=== PATIENT | male | born 1950 | race Caucasian/White ===

== ENCOUNTER 2017-03-01 15:34 | Emergency (ER) | payer MEDICARE, OTHER ==
[~2017-03-01] VITALS: Ht 172.7 cm; Wt 80.0 kg
[2017-03-01 15:37] VITALS: BP 227/112; PULSE 74; RESP 12; TEMP 97.6; O2SAT 97
--- NOTE | 2017-03-01 15:42 | PD ---
Physical Exam Date Seen by Provider: March 01, 2017 Time Seen by Provider: 15:40 Narrative 66 YOWM C/O HTN . BP ELEVATED. NO BRITT ,CP/SOB, DIZZINESS, NUMBNESS OR WEAKNESS VS NOTED Data Data Last Documented VS Vital Signs Date Time Temp Pulse Resp B/P Pulse Ox O2 Delivery O2 Flow Rate FiO2 03/01/17 15:37 97.6 74 12 227/112 97 MDM Medical Record Reviewed: Yes Supervised Visit with ROZ: Harley Watt March 01, 2017 15:42
[2017-03-01 16:20] VITALS: BP 225/107; PULSE 67; RESP 15; O2SAT 98
[2017-03-01] MEDS ORDERED: ENALAPRILAT 2.5 MG/2 ML VIAL IV PUSH ONE (16:30)
--- NOTE | 2017-03-01 16:32 | PD ---
HPI Chief Complaint: Hypertension Time Seen by Provider: 16:20 Travel History International Travel<30 days: No Contact w/Intl Traveler<30days: No Traveled to known affect area: No History of Present Illness HPI 66-year-old male with history of bladder and urethral cancer currently not receiving any treatment, under palliative care per his , history of dementia who presents for evaluation of asymptomatic hypertension. The patient and report that today he had an appointment at the local [facility], he has not had primary care physician evaluation in 2 years. His blood pressure was instantly noted to be elevated and so he was sent here for further evaluation. He says that he feels normal. He denies headache, chest pain, shortness of breath, confusion, weakness, slurred speech, nausea, vomiting, recent illness. No previously documented history of hypertension. The reports that the physician at the [facility] today is prescribing him a blood pressure medicine, presumably Norvasc, which is waiting at the pharmacy. He is also being prescribed a blood pressure cuff. No other complaints. PFSH Past Medical History Cerebrovascular Accident: Yes Social History Alcohol Use: No Tobacco Use: No Allergies-Medications (Allergen,Severity, Reaction): Coded Allergies: Darvon (Verified Allergy, Intermediate, RASH, 03/01/17) Reported Meds & Prescriptions Reported Meds & Active Scripts Active Norvasc (Amlodipine Besylate) 10 Mg Tab 10 Mg PO DAILY 14 Days Review of Systems Except as stated in HPI: all other systems reviewed are Neg Physical Exam Narrative GENERAL: Pleasant well-developed well-nourished male in no acute distress alert and oriented to person, place, time, situation. SKIN: Warm and dry. HEAD: Atraumatic. Normocephalic. EYES: Pupils equal and round. No scleral icterus. No injection or drainage. ENT: No nasal bleeding or discharge. Mucous membranes pink and moist. NECK: Trachea midline. No JVD. CARDIOVASCULAR: Regular rate and rhythm. No murmur appreciated. RESPIRATORY: No accessory muscle use. Clear to auscultation. Breath sounds equal bilaterally. GASTROINTESTINAL: Abdomen soft, non-tender, nondistended. Hepatic and splenic margins not palpable. MUSCULOSKELETAL: No obvious deformities. No clubbing. No cyanosis. No edema. NEUROLOGICAL: Awake and alert. No obvious cranial nerve deficits. Motor grossly within normal limits. Normal speech. PSYCHIATRIC: Appropriate mood and affect; insight and judgment normal. Data Data Last Documented VS Vital Signs Date Time Temp Pulse Resp B/P Pulse Ox O2 Delivery O2 Flow Rate FiO2 03/01/17 17:01 63 15 216/98 Room Air 03/01/17 16:27 98 03/01/17 15:37 97.6 Orders Complete Blood Count With Diff (03/01/17 16:29) Basic Metabolic Panel (Bmp) (03/01/17 16:29) Electrocardiogram (03/01/17 ) Enalaprilat Inj (Vasotec Inj) (03/01/17 16:30) Amlodipine (Norvasc) (03/01/17 18:00) Labs Laboratory Tests Test 03/01/17 16:45 White Blood Count 11.0 TH/MM3 Red Blood Count 5.24 MIL/MM3 Hemoglobin 14.3 GM/DL Hematocrit 43.0 % Mean Corpuscular Volume 82.2 FL Mean Corpuscular Hemoglobin 27.3 PG Mean Corpuscular Hemoglobin 33.2 % Concent Red Cell Distribution Width 13.4 % Platelet Count 230 TH/MM3 Mean Platelet Volume 8.8 FL Neutrophils (%) (Auto) 72.4 % Lymphocytes (%) (Auto) 19.0 % Monocytes (%) (Auto) 6.8 % Eosinophils (%) (Auto) 1.1 % Basophils (%) (Auto) 0.7 % Neutrophils # (Auto) 7.9 TH/MM3 Lymphocytes # (Auto) 2.1 TH/MM3 Monocytes # (Auto) 0.7 TH/MM3 Eosinophils # (Auto) 0.1 TH/MM3 Basophils # (Auto) 0.1 TH/MM3 CBC Comment DIFF FINAL Differential Comment Sodium Level 140 MEQ/L Potassium Level 4.4 MEQ/L Chloride Level 104 MEQ/L Carbon Dioxide Level 30.1 MEQ/L Anion Gap 6 MEQ/L Blood Urea Nitrogen 14 MG/DL Creatinine 0.91 MG/DL Estimat Glomerular Filtration 83 ML/MIN Rate Random Glucose 84 MG/DL Calcium Level 9.0 MG/DL MDM Medical Decision Making Medical Screen Exam Complete: Yes Emergency Medical Condition: Yes Medical Record Reviewed: Yes Differential Diagnosis Essential hypertension, hypertensive urgency, hypertensive emergency Narrative Course 66 year old male with asymptomatic hypertension. He appears well. He has no neurologic deficits. Nothing to suggest hypertensive emergency. [facility] but he will not be able to pick it up until Saturday. He is given a dose of enalapril with appropriate reduction in his blood pressure to the high 190s systolic range. His lab work and EKG are unremarkable. The patient will be given a dose of Norvasc here and discharged with a prescription to get him through the weekend. He is encouraged to monitor his blood pressure no regular basis and follow up closely with the [facility] for appropriate blood pressure management. Discussed signs and symptoms or to return to the emergency room. He is stable for discharge. Procedures EKG Prior to Arrival: Yes Diagnosis Primary Impression: Hypertension Qualified Code: I10 - Essential hypertension Additional Instructions: Medication as prescribed. Monitor blood pressure and a regular basis. [facility] to discuss [facility]. Return for any acutely new or worsening symptoms. Med/Other Pt SpecificInfo: Prescription(s) given Scripts Amlodipine (Norvasc)10 Mg Tab10 Mg PO DAILY 14 Days Ref 0 Prov:Curt Earl MD 03/01/17 Disposition: 01 DISCHARGE HOME Condition: Stable Adrian Marroquin March 01, 2017 16:32
[2017-03-01 17:01] VITALS: BP 216/98; PULSE 63; RESP 15
[2017-03-01 17:39] LABS: AUTOMATED NEUTROPHIL # 7.9 TH/MM3 (1.8-7.7); BASOPHIL # 0.1 TH/MM3 (0-0.2); BASOPHIL % 0.7 % (0.0-2.0); EOSINOPHIL # 0.1 TH/MM3 (0-0.4); EOSINOPHIL % 1.1 % (0.0-4.0); HEMO FLAGS DIFF FINAL; LYMPHOCYTE # 2.1 TH/MM3 (1.0-4.8); MEAN CELL VOLUME 82.2 FL (80.0-100.0); MEAN CORPUSCULAR HEMOGLOBIN 27.3 PG (27.0-34.0); MEAN CORPUSCULAR HGB CONC 33.2 % (32.0-36.0); MONO % 6.8 % (0.0-8.0); NEUT % 72.4 % (16.0-70.0); PLATELET COUNT 230 TH/MM3 (150-450); RED BLOOD COUNT 5.24 MIL/MM3 (4.50-5.90); RED CELL DISTRIBUTION WIDTH 13.4 % (11.6-17.2)
[2017-03-01 17:40] LABS: BICARBONATE 30.1 MEQ/L (21.0-32.0); POTASSIUM 4.4 MEQ/L (3.5-5.1)
[2017-03-01] MEDS ORDERED: AMLO10 PO ×2 (17:48→17:49)
[2017-03-01 18:01] VITALS: BP 209/90
--- NOTE | 2017-03-02 15:47 | EKG ---
Date Performed: 03/01/2017 Time Performed: 17:16:13 PTAGE: 66 years EKG: Sinus rhythm NONSPECIFIC T-WAVE ABNORMALITY BORDERLINE ECG NO PREVIOUS TRACING DOCTOR: Lashaun Motta Interpretating Date/Time 03/02/2017 15:45:18
== END 2017-03-01 18:10 | disposition home or self-care (01) ==
LOC: NEPC 15:34
DX: I10 Essential (primary) hypertension (principal); R94.31 Abnormal electrocardiogram [ECG] [EKG]; C67.9 Malignant neoplasm of bladder, unspecified
CPT/HCPCS: 80048; 85025; 93005; 96374